=== PATIENT | female | born 1945 | race Caucasian/White ===

== ENCOUNTER 2023-11-08 09:42 | Outpatient (RCR) | payer MEDICARE, BC, SELFPAY ==
--- NOTE | 2023-11-08 17:58 | PT.OPEX ---
[facility] Outpatient Eval Start: 11/08/23 13:36 Freq: Status: Active Protocol: Document 11/08/23 13:39 MADDIE (Rec: 11/08/23 17:57 MADDIE [id number]) E-signed By Roxanna Jane DPT Physical Therapy Outpatient Evaluation Insurance Information Recert Due Date 01/07/24 Insurance Name Medicare B Medical Diagnosis R hip OA R ELVIS scheduled for 11/18 Treating Diagnosis R hip pain, impaired R hip ROM , impaired R hip/LE mobility/ strength, limited tolerance for standing/walking, limping/ antalgic gait using 4ww Subjective Subjective Patient reports chronic R hip pain, progressively getting worse, leading up to R ELVIS scheduled for 11/18. She reports severe R hip pain the last couple of weeks. She had an injection about 3 months ago so had to wait to schedule her ELVIS surgery. She is getting around with a 4ww - starting using it about 2 months ago secondary to R hip pain. Sleep is interrupted. She is using tylenol, advil some but this doesn't really help with her severe pain. Using ice as needed. Patient/ spouse reports having single level rambler home, no stairs. She has a lift chair she can use at home. Spouse has been assisting her with dressing LEs/socks/shoes secondary to R hip pain. Pain rated 8/10, worse with activity, WB, standing, walking. Date of Last Physician Visit 10/14/23 Date of Surgery (If applicable) 11/19/23 Current Work Status Retired Assessment Assessment/Impression Patient is a 78 year old female with chronic R hip pain , impaired R hip ROM, impaired R hip/LE mobility/strength, limited tolerance for standing /walking, limping/antalgic gait using 4ww. R hip pain has been progressively getting worse, leading up to R ELVIS scheduled for 11/18. Patient seen in PT today for pre-op session to provide education/ information on upcoming ELVIS surgery, safety information/HO , equipment instruction including use of 4ww/FWW, and instruction in ELVIS exercises. Handouts issued for exercises , patient to perform them leading up to surgery. Reviewed PT/OT plan during hospital stay and patient is scheduled for OP PT in [place] post op. Patient and spouse questions answered this session. They expressed understanding of the information provided. No further PT scheduled at this clinic. Patient will continue with her HEP and follow up with OP PT closer to home after surgery. Plan of Care Rehabilitation Potential Good Physical Therapy Goals 1. Patient will be educated in ELVIS pre/post-op safety, mobility, and exercises with HOs provided within one visit with patient returning to PT for post op treatment after R ELVIS surgery on 11/19/23. Note: patient will be going to post op OP PT in [place]. Coordination/Communication With Referral Source Frequency/Duration Pre-op ELVIS visit only. Patient has OP PT scheduled in [place] after ELVIS surgery. Patient Will Be Discharged From Therapy Completion of LTG(s),Skills Plateau,Independent w/HEP, Independently Progressing Evaluation Billing Untimed Code Treatment Minutes 40 Complexity Moderate Certification Information Initial Certification Date 11/08/23 Ending Certification Date 01/07/24 Provider Signature Shows Agreement With POC & Medical Necessity Physician Signature & Date Requested Please Sign/Date Here Physician Comment/Change : Physician NPI Number #
== END 2024-02-18 15:40 | disposition home or self-care (01) ==
PROVIDERS: PCP Nurse Practitioner Family; Visit Provider Orthopaedic Surgery
DX: M16.11 Unilateral primary osteoarthritis, right hip (principal); M25.551 Pain in right hip; Z74.09 Other reduced mobility; R26.89 Other abnormalities of gait and mobility; R29.898 Other symptoms and signs involving the musculoskeletal system; Z96.641 Presence of right artificial hip joint; Z51.89 Encounter for other specified aftercare
CPT/HCPCS: 97162

== ENCOUNTER 2024-03-12 06:45 | Day surgery (SDC) | payer MEDICARE, BC, SELFPAY ==
[2024-03-12] VITALS (24 sets, daily range): BP systolic 106–179; BP diastolic 63–106; PULSE 58–84; RESP 14–20; TEMP 36.2–36.6; O2SAT 93–98; BMI 46.6
--- OUTSIDE RECORDS SUMMARY | 2024-03-12 06:49 | XMS_ITS | Clinical Summary ---
Author Organization [facility] Address [address] [address] Phone Care Team Providers Care Support Service Tech Name Role Phone Elsewhere, Pcp Primary Care Provider Unavailabl e Allergies Active Allergy Reactions Criticality Noted Date Comments Meperidine Unknown 03/20/2023 Morphine And Codeine Unknown 03/20/2023 Medications Medication Sig Dispensed Refills Start Date End Date Status albuterol HFA (Proair HFA, Ventolin HFA) 108 (90 Base) MCG/ACT inhalation aerosol 02/14/2023 Active Eliquis 5 MG tablet 02/23/2023 Activ e chlorthalidone (HYGROTON) 25 MG tablet 02/23/2023 Active metoprolol succinate (Toprol-XL) 100 MG 24 hour extended-release tablet 02/23/2023 Active lisinopril (Prinivil, Zestril) 40 MG tablet 02/23/2023 Active nystatin (Mycostatin) 988546 UNIT/GM cream 10/25/2022 Active montelukast (Singulair) 10 MG tablet 02/23/2023 Active spironolactone (Aldactone) 50 MG tablet 02/23/2023 Active pravastatin (Pravachol) 40 MG tablet 02/23/2023 Active pantoprazole (Protonix) 40 MG delayed-release tablet 02/23/2023 Ac tive Incruse Ellipta 62.5 MCG/ACT Aerosol Powder Breath Activated 02/14/2023 A ctive tamsulosin (Flomax) 0.4 MG 24 hour capsule 02/23/2023 Active venlafaxine (Effexor-XR) 150 MG 24 hour extended release capsule 02/23/2023 Active venlafaxine (Effexor-XR) 37.5 MG 24 hour extended release capsule 02/23/2023 Active Social History Tobacco Use Types Packs/Day Years Used Date Smoking Tobacco: Never Smokeless Tobacco: Never Tobacco Cessation:Counseling Given: Not Answered Sex and Gender Information Value Date Recorded Sex Assigned at Not on file Gender Identity Not on file Sexual Orientation Not on file Obstetrics History Plan of Treatment Health Maintenance Due Date Last Done Comments PERTUSSIS (Standing Order) 1965 TETANUS (Standing Order) 1965 Shingrix (Zoster recombinant ) vaccine (Standing Order) (1 of 2) 1996 RSV Vaccination (60+ yrs) (Abrysvo/Arexvy) (1 - 1-dose 60+ series) 2006 DXA,FEMALES AGE 65 OR GREATER 2011 Pneumococcal Vaccine: 65+ yr s (Standing Order) (1 of - PCV) 2011 COVID-19 Vaccine (2022-2 4 season) 2024 Influenza Vaccine Seasonal (Standing Order) (#1) 2024 HPV Vaccine (Standing Order) Aged Out No longer eligible based on patient's age to complete this topic Hepatitis B Vaccine (Standin g Order) Aged Out No longer eligible b ased on patient's age to complete this topic Care Teams Support Service Tech Relationship Specialty Start Date End Date Elsewhere, Pcp PCP - General 03/20/23
--- OUTSIDE RECORDS SUMMARY | 2024-03-12 06:49 | XMS_ITS | Clinical Summary ---
Author Organization [facility] Address [place], [place] [address] Care Team Providers Care Flower Grower Name Role Phone Kiarra Espinosa Primary Care Provider [phone] Allergies Active Allergy Reactions Criticality Noted Date Comments Meperidine Hallucinations,Vomiting 08/09/2014 Morphine Hallucinations,Vomiting 08/09/2014 Medications Medication Sig Dispensed Refills Start Date End Date Status ASPIRIN 81 MG TAB, DELAYED RELEASE take 1 tablet (81 mg) by oral route once daily 0 06/10/2007 Active venlafaxine (EFFEXOR) 50 mg tablet Take 50 mg by mouth every morning. Active albuterol-ipratropiu m (DUONEB) (2.5-0.5 mg) in 3 mL NEBULIZATION solution Inhale 1 Neb via a nebulizer every 4 hours if needed for Wheezing. Active pravastatin (PRAVACHOL) 40 mg tablet Take 1 tablet by mouth at bedtime. 10 tablet 08/19/2014 Active lisinopril-hydrochlo rothiazide, 20-25 mg, (PRINZIDE, ZESTORETIC) 20-25 mg per tablet Take 1 tablet by mouth once daily. Active amLODIPine (NORVASC) 10 mg tablet Take 10 mg by mouth once daily. Active topiramate (TOPAMAX) 25 mg tablet Take 75 mg by mouth at bedtime. Active montelukast (SINGULAIR) 10 mg tablet Take 10 mg by mouth at bedtime. Active acetaminophen (TYLENOL) 325 mg tablet Take 975 mg by mouth 2 times daily if needed. Max acetaminophen dose: 4000mg in 24 hrs. Active sennosides-docusate, 8.6-50 mg, (SENOKOT S) 8.6-50 mg tablet Take 1-2 tablets by mouth 2 times daily if needed for Constipation. 0 12/21/2016 Active metoprolol succinate (TOPROL XL) 50 mg sustained-release tablet Take 1 tablet by mouth 2 times daily. Hold for pulse less than 65 beats per minute 0 12/21/2016 Active famotidine (PEPCID) 20 mg tabletIndications:In tracranial aneurysm,Antiplatele t or antithrombotic long-term use Take 1 tablet by mouth 2 times daily. 60 tablet 12/21/2016 Active clopidogrel (PLAVIX) 75 mg tabletIndications:Ne xt dose due 12/21/16 Take 1 tab (75mg) by mouth every THIRD day. Discontinue after Saturday, January 19 2017. Indications: Next dose due 12/21/16 10 tablet 12/21/2016 Active Active Problems Problem Noted Date Diagnosed Date HTN (hypertension) 12/19/2016 Right internal carotid artery aneurysm 7 Overview (12/21/2016): S/p coil embolization after rupture on 08/09/2014. S/p coil embolization of recurrent aneurysm on 12/20/16. Coils are MRI compatible up to 3 Jud. Hyponatremia 08/13/2014 Elevated troponin 08/10/2014 Shortness of breath 06/10/2007 History of subarachnoid hemorrhage Overview (12/19/2016): Ruptured right ICA terminus aneurysm Jul 2014. Resolved Problems Problem Noted Date Diagnosed Date Resolved Date SAH (subarachnoid hemorrhage ) mast 3, monet reno 2 08/09/2014 12/19/2016 Overview (08/09/2014): Due to ruptured MARY terminus aneurysm Ruptured MARY terminus aneur ysm: Treated with coil embolization 08/09/2014. Coils MRI compatible up to 3 JUD. 08/09/2014 12/19/2016 Social History Tobacco Use Types Packs/Day Years Used Date Smoking Tobacco: Former Cigarettes Q uit: 06/08/1970 Smokeless Tobacco: Never Alcohol Use Standard Drinks/Week Comments Yes 5 (1 standard drink = 0.6 oz pur e alcohol) Sex and Gender Information Value Date Recorded Sex Assigned at Not on file Gender Identity Not on file Sexual Orientation Not on file Obstetrics History Last Filed Vital Signs Vital Sign Reading Time Taken Comments Blood Pressure 134/70 12/21/2016 11:12 AM CDT Pulse 53 12/21/2016 11:12 AM CDT Temperature 36.3 ??C (97.3 ??F) 12/21/2016 9:29 AM CD T Respiratory Rate 16 12/21/2016 11:12 AM CDT Oxygen Saturation 97% 12/21/2016 11:12 AM CDT Inhaled Oxygen Concentration - - Weight 132.9 kg (293 lb) 12/20/2016 8:57 AM CDT Height 175.3 cm (5' 9) 12/20/2016 8:57 AM CDT Body Mass Index 43.27 12/20/2016 8:57 AM CDT Plan of Treatment Health Maintenance Due Date Last Done Comments Tdap 1957 Depression screening for age 12+ 1958 Hepatitis C screening for ag e 18-79 1964 Tetanus booster 1966 Zoster (shingles) series for age 50+ (1 of 2) 1996 RSV vaccine for adults or (1 - 1-dose 60+ series) 2006 DEXA/DXA scan for age 65+ 2011 Medicare Wellness for age 65+ 2011 Pneumococcal series for age 65+ (1 of 1 - PCV) 2011 BMI (ht and wt on same day) for age 18+ 11/23/2017 11/23/2016 COVID-19 vaccine series (2022- season) 2024 04/09/2023, 04/30/2022, 11/21/2021, Additional history exists Influenza for age 65+ 02/23/2024 Advance Directives * Full Code (Latest Code Status on File) Date Activated Date Inactivated Comments 12/20/2016 8:21 AM 12/21/2016 3:49 PM Question Answer Comments Code Status Discussion: Discussed * Full Code Date Activated Date Inactivated Comments 08/09/2014 2:46 AM 08/19/2014 8:35 PM Care Teams Flower Grower Relationship Specialty Start Date End Date Kiarra Espinosa [address] [place] [id number] PCP - General Nurse Practitioner - Family 12/08/20
[2024-03-12] MEDS: ACETAMINOPHEN 500 MG TABLET 1000 MG PO ×3 (07:10→20:01)
[2024-03-12] MEDS: OXYCODONE (CR) 10 MG TAB.ER.12H PO (07:10)
[2024-03-12] MEDS: LACTATED RINGERS 1000 ML 1,000 ML 100 ML IV ×2 (07:25→09:41)
[2024-03-12] MEDS: SODIUM CHLORIDE 0.9 % (FLUSH) 10 ML SYRINGE IVF (07:25)
[2024-03-12] MEDS: fentaNYL 100 MCG/2 ML inj IVP (08:19)
[2024-03-12] MEDS: MIDAZOLAM HCL 1 MG/ML inj IVP (08:19)
--- NOTE | 2024-03-12 08:32 | SUR.PREOP ---
TIME?OUT:?0819 PT/Tanisha MAE RN/Jignesh JUDD MDA?VERIFICATION?OF?SURGICAL?SITE,?PROCEDURE,?AND?CONSENT OBTAINED?PRIOR?TO?INVASIVE?PROCEDURE.
--- NOTE | 2024-03-12 09:00 | CRLHL7_ITS ---
For Patients: As a result of the Cures Act, medical imaging exams and procedure reports are released immediately into your electronic medical record. You may view this report before your referring provider. If you have questions, please contact your health care provider. Indication: Hip replacement surgery Technique: AP hip fluoroscopic images. Fluoroscopy time 59.6 seconds. Findings/Impression: Hardware from a right total hip arthroplasty is in satisfactory position. Dictated by Cody Witt MD @ 03/12/2024 11:14:38 AM (Electronically Signed)
--- NOTE | 2024-03-12 09:18 | W.ANESCHARGE ---
Anesthesia Charges Start Date/Time Anesthesia Start Date: 03/12/24 Anesthesia Start Time: 08:57 Stop Date/Time Anesthesia Stop Date: 03/12/24 Anesthesia Stop Time: 12:14 Summary Extremes of Age - Over 70 or under 1: MDA
--- NOTE | 2024-03-12 09:18 | W.PM.NB ---
Nerve Block Nerve Block Time Seen by Provider: 08:24 Type of block requested by surgeon for post-operative analgesia: ANDRZEJ/LFCN Side: right Time out performed: Yes Verification of patient name: Yes Verification of date of : Yes Site marking: site marked Name of person performing procedure: Stew Continuous monitoring Was continuous monitoring of O2 sat, B/P, school bus monitor, recorded every 15 minutes?: Yes Procedure Checklist: sterile prep, needles and gloves Ultrasound guided. Images saved: Yes Medications given in 5ml increments after negative aspiration: Ropivicaine %: 0.5 mL: 30 Needle gauge: 20 Decadron (mg): 10 Precedex (mcg): 25 Patient tolerated procedure well: Yes Additional comments: Needle noted below psoas tendon needle noted adjacent to LFCN Block Charges Block Charge (with Pro Fee): Other Periph Nerve Block Use of Ultrasound Machine for Block: Yes- US Guidance/pain block
[2024-03-12] MEDS: CEFAZOLIN 2 GM INJ IVP (09:32)
[2024-03-12] MEDS: TRANEXAMIC ACID 100 MG/ML INJ 1000 MG IV (09:32)
--- NOTE | 2024-03-12 11:02 | CRLHL7_ITS ---
For Patients: As a result of the Century Cures Act, medical imaging exams and procedure reports are released immediately into your electronic medical record. You may view this report before your referring provider. If you have questions, please contact your health care provider. INDICATION: Postop. TECHNIQUE: Portable three-view study pelvis and right hip. FINDINGS: Bilateral total-hip arthroplasty with anatomic alignment. Intact hardware. Dictated by Marilyn Forrest MD @ 03/16/2024 9:16:45 AM (Electronically Signed)
--- NOTE | 2024-03-12 11:05 | PM.ORPRC ---
Procedure Note Date of procedure: 03/12/24 Procedure: PREOPERATIVE DIAGNOSIS: Right hip osteoarthritis POSTOPERATIVE DIAGNOSIS: Right hip osteoarthritis NAME OF OPERATION: Right total hip arthroplasty SURGEON: Sarbjit Carmen MD FRONT OFFICE SPECIALIST: Shelli Talamantes PA-C, Sasha Jeter PA-C IMPLANTS: 1. [employer] # 52 sector ingrowth cup 2. 36 x 52 +4 neutral polyethylene 3. Actis # 6 standard collared ingrowth stem 4. 36 + 1.5 cobalt chrome femoral head ANESTHESIA: Spinal ESTIMATED BLOOD LOSS: 350 cc COMPLICATIONS: None SPECIMENS: None DRAINS: None PREOPERATIVE ANTIBIOTICS: Ancef 3 grams INDICATIONS: The patient is a 78-year-old with a longstanding history of severe, unrelenting right hip pain secondary to end-stage right hip osteoarthritis. Despite appropriate nonoperative management, including activity modification, use of an assist device, anti-inflammatories, zysc-[id number] pain medication, physical therapy and injections, they continue to have pain and disability. Operative intervention was offered. The risks, benefits and expected outcomes were discussed in detail. These included but were not limited to: Infection, bleeding, injury to blood vessel or nerve, venous thromboembolism. All questions were answered to their satisfaction. Use of an assistant head cashier was necessary throughout the case for patient positioning and safety, soft tissue retraction and closure. A modifier 22 should be added to this case. The patient's weight of 134 kg with a BMI of 47 made the exposure nearly impossible to do the case. This more than doubled the time typically required to complete it. PROCEDURE: The patient was placed supine on the [place] table. General anesthesia was administered. The assistant head cashier made sure the patient was properly positioned. The right hip was prepped and draped in the usual sterile fashion. The image intensifier was brought in for a perfect AP pelvis and a perfect double tear drop AP view of each hip which were used for intraoperative templating with our fluoroscopic guide. An oblique incision was made 3 cm distal and 3 cm lateral to the anterior superior iliac spine. The assistant head cashier retracted the soft tissues to protect them. Subcutaneous dissection was taken with electrocautery to the superficial fascia. The fascia was divided in line with the incision. Blunt dissection was carried medially to the tensor fascia hayder and sartorius interval. Deep dissection was carried with electrocautery. The circumflex vessels were cauterized and divided. The capsule was exposed and then divided in a T-fashion, tagged with #1 Ethibond sutures. Retractors were placed in the joint, held by the assistant head cashier. The corkscrew was placed in the femoral head. The neck cut was made in the subcapital region. We made a second neck cut more distal. The napkin ring of bone was removed. The femoral head was removed intact. Acetabular retractors were placed, held by the assistant head cashier. The labrum was sharply debrided. The capsule was released. The 43 mm reamer was used to the true medial wall. We then enlarged in 2 mm increments using the image intensifier for our reamer placement. We impacted the cup which had excellent purchase. We placed the polyethylene. Attention was then turned to the proximal femur. The limb was placed in 140 degrees of external rotation, maximum extension and adduction. A significant amount of time was spent releasing the capsule to allow us to deliver the femur into the wound and complete the femoral side safely. Retractors were held by the assistant head cashier throughout the femoral preparation. The box worker and canal finder were used. Broaches were used to a stable size. The calcar reamer was used. Trial components were placed. The hip was reduced and was found to be stable with appropriate soft tissue tension. Length and offset had been nicely restored using the image intensifier and our fluoroscopic guide. Trial components were removed. The stem was impacted. We placed the femoral head. Again, the hip was reduced and was found to be stable with appropriate soft tissue tension. Length and offset had been nicely restored. The assistant head cashier did a three minute dilute Betadine solution soak. The assistant head cashier irrigated the wound with 3 liters of normal saline via pulse lavage. The assistant head cashier repaired the anterior capsule with a #1 Vicryl and our previously placed Ethibond sutures. The assistant head cashier closed the fascia over the tensor fascia hayder with a #1 PDO Stratafix, subcutaneous tissues with 2-0 Vicryl, skin with a running 3-0 Stratafix and glue. A dry dressing was applied by the assistant head cashier. Sponge and needle counts were correct x 2. The patient tolerated the procedure well; there were no apparent complications. They were awakened and extubated in the operating room, sent to the Post-Anesthesia Care Unit in satisfactory condition. PLAN: 1. The patient will be mobilized with physical therapy, weight-bearing as tolerates 2. The patient's usual dose of Eliquis can be restarted 3. The patient will be discharged once medically appropriate
--- NOTE | 2024-03-12 12:16 | P.ANES_ITS ---
Anesthesia Charges Start Date/Time Anesthesia Start Date: 03/12/24 Anesthesia Start Time: 08:57 Stop Date/Time Anesthesia Stop Date: 03/12/24 Anesthesia Stop Time: 12:14 Summary Extremes of Age - Over 70 or under 1: DIRECTOR OF CURRICULUM AND INSTRUCTION
[2024-03-12] MEDS: LACTATED RINGERS 1000 ML 1,000 ML 75 ML IV (13:03)
[2024-03-12] MEDS: OXYCODONE 5 MG TABLET PO (15:01)
[2024-03-12] MEDS: CEFAZOLIN 3 GM in 0.9 % SODIUM CHLORIDE Mini-bag 100 ML IVPB ×2 (15:09→23:40)
--- NOTE | 2024-03-12 16:31 | PC.NURSE ---
Shift [id number]: Pt arrived to floor around 1300, alert and oriented. Pt is hypertensive, though otherwise vitally stable. Plexi pulses are in place bilaterally. Dressing is clean, dry and intact. Pain was rated at a 4/10, see mar for interventions. Daughters at the bedside and appears supportive.
--- NOTE | 2024-03-12 17:37 | PM.IMCN1 ---
Date of Consult Patient: Other Consult date: 03/12/24 Requesting Physician: Orthopedics Primary Care Provider: Kiarra Espinosa, LEATHA Consult Narrative Reason for consult: post-op: for CAD, HTN-heart disease with HF, A Fib, WILLI, HLD, asthma Narrative: Lisa Crane is a 78 year old woman with severe symptomatic right coxarthrosis undergoes elective right total hip arthroplasty today, 03/12/2024, with Dr. Carmen, orthopedic surgeon, [facility] [place], [place], [place]. No apparent complications. Estimated blood loss 350 mL. Pain adequately controlled at this time. With standby assist of 1, gait belt, and her walker she has already been able to transfer from supine to sitting position, sitting to standing, walk a few steps to bedside commode, and then walk a few steps to bedside recliner chair. Denies chest, neck, back, shoulder, or abdominal pressure, tightness, heaviness, or pain with exertion. Denies syncope or near-syncope. Denies nausea or vomiting. Denies dyspnea at rest, paroxysmal nocturnal dyspnea, orthopnea. Has baseline level of breathing. Denies wheezing. Denies palpitations or chest fluttering. Review of Systems Status of ROS: Reports: 10 or more systems reviewed and unremarkable except as noted in History and below and 6 or more systems reviewed and unremarkable except as noted in History and below Narrative: She indicates she feels better now than she has for months. The the persistent right hip pain exacerbated with movement and weight-bearing is already vastly improved now compared to prior to surgery. Does tell me about occasional intermittent transient, fleeting, lancinating pain originating in the right hip which resolves very rapidly - this is new since surgery. Has plan in place for support and help in her home upon discharge from the hospital. Denies recent trauma, injury, travel. No recent illness, fevers, rigors, diaphoresis. Denies dysuria, urgency, frequency, hematuria. Denies diarrhea. Denies any wounds or infections on her skin of any sort. CBC on 01/23/2024 with hemoglobin of 13.4, hematocrit 42, white blood cell count 8.6, platelet count 280. Hemoglobin on 01/03/2024 was 12.6. Comprehensive metabolic panel on 01/23/2024 reviewed the following: Potassium 4.7, sodium 140, chloride 101, bicarbonate 26, anion gap 13, BUN 18, creatinine 0.96, EGFR 61, calcium 9.3, glucose 96, total protein 7.4, albumin 4.2, AST 19, ALT 15, alkaline phosphatase 95, total bilirubin 0.6. NT proBNP was 395 on 01/23/2024. Arterial blood gas while on room air on 01/29/2024: PH 7.4, pCO2 41, PO2 79, bicarb 25, base excess 0, oxygen saturation 95%. Electrocardiogram dated 11/14/2023 reviewed and demonstrated atrial and biventricular pacemaker with underlying sinus rhythm. [facility] Medical History History of tobacco use disorder ?Z87.891 - Personal history of nicotine dependence (ICD-10) History of alcohol use disorder ?Z87.898 - Personal history of other specified conditions (ICD-10) History of subarachnoid hemorrhage ?Z86.79 - Personal history of other diseases of the circulatory system (ICD-10) Coronary artery disease ?I25.10 - Atherosclerotic heart disease of [place] coronary artery without angina pectoris (ICD-10) Morbid obesity with BMI of 45.0-49.9, adult ?E66.01 - Morbid (severe) obesity due to excess calories (ICD-10) ?Z68.42 - Body mass index [BMI] 45.0-49.9, adult (ICD-10) WILLI (obstructive sleep apnea) ?G47.33 - Obstructive sleep apnea (adult) (pediatric) (ICD-10) Hypertensive heart disease with CHF ?I11.0 - Hypertensive heart disease with heart failure (ICD-10) Pacemaker ?Z95.0 - Presence of cardiac pacemaker (ICD-10) Depression ?F32.A - Depression, unspecified (ICD-10) Anxiety ?F41.9 - Anxiety disorder, unspecified (ICD-10) GERD with apnea ?K21.9 - Gastro-esophageal reflux disease without esophagitis (ICD-10) ?R06.81 - Apnea, not elsewhere classified (ICD-10) Asthma ?J45.909 - Unspecified asthma, uncomplicated (ICD-10) Hypertension ?I10 - Essential (primary) hypertension (ICD-10) Low back pain ?M54.50 - Low back pain, unspecified (ICD-10) Cervical vertebral fusion ?M43.22 - Fusion of spine, cervical region (ICD-10) Aneurysm ?I72.9 - Aneurysm of unspecified site (ICD-10) Stroke ?I63.9 - Cerebral infarction, unspecified (ICD-10) COPD (chronic obstructive pulmonary disease) ?J44.9 - Chronic obstructive pulmonary disease, unspecified (ICD-10) CHF (congestive heart failure) ?I50.9 - Heart failure, unspecified (ICD-10) Primary osteoarthritis of right hip ?M16.11 - Unilateral primary osteoarthritis, right hip (ICD-10) Surgical History (Updated 03/12/24 @ 18:11 by lEiu Storm MD) S/P total right hip arthroplasty (03/12/24) ?Z96.641 - Presence of right artificial hip joint (ICD-10) History of pancreatic surgery ?Z98.890 - Other specified postprocedural states (ICD-10) History of cholecystectomy ?Z90.49 - Acquired absence of other specified parts of digestive tract (ICD-10) S/P rotator cuff repair ?Z98.890 - Other specified postprocedural states (ICD-10) Bariatric surgery status ?Z98.84 - Bariatric surgery status (ICD-10) History of bladder surgery ?Z98.890 - Other specified postprocedural states (ICD-10) S/P total knee arthroplasty ?Z96.659 - Presence of unspecified artificial knee joint (ICD-10) History of carpal tunnel release of both wrists ?Z98.890 - Other specified postprocedural states (ICD-10) History of ankle surgery ?Z98.890 - Other specified postprocedural states (ICD-10) History of total left hip replacement ?Z96.642 - Presence of left artificial hip joint (ICD-10) History of hysterectomy ?Z90.710 - Acquired absence of both cervix and uterus (ICD-10) Social History Smoking Status: Never smoker How often do you have a drink containing alcohol: 2-4 times a month AUDIT-C Alcohol total score: 2 Non-prescribed substance use: denies use Caffeine: Yes Meds Home Medications and Allergies Home Medications ?Medication ?Instructions ?Recorded ?Confirmed ?Type albuterol sulfate 90 mcg/actuation 2 puff inhalation Q4H PRN 10/14/23 03/12/24 History aerosol inhaler apixaban 5 mg tablet (Eliquis) 5 mg PO BID 10/14/23 03/12/24 History chlorthalidone 25 mg tablet 12.5 mg PO QAM 10/14/23 03/12/24 History epinephrine 0.3 mg/0.3 mL 0.3 mg IM DAILY PRN 10/14/23 03/12/24 History injection, auto-injector lisinopril 40 mg tablet 40 mg PO DAILY 10/14/23 03/12/24 History metoprolol succinate 100 mg 100 mg PO DAILY 10/14/23 03/12/24 History tablet,extended release 24 hr montelukast 10 mg tablet 10 mg PO HS 10/14/23 03/12/24 History pantoprazole 40 mg tablet,delayed 40 mg PO DAILY 10/14/23 03/12/24 History release pravastatin 40 mg tablet 40 mg PO DAILY 10/14/23 03/12/24 History spironolactone 50 mg tablet 50 mg PO DAILY 10/14/23 03/12/24 History tamsulosin 0.4 mg capsule 0.4 mg PO DAILY 10/14/23 03/12/24 History venlafaxine 150 mg 150 mg PO DAILY 10/14/23 03/12/24 History capsule,extended release 24 hr venlafaxine 37.5 mg 37.5 mg PO DAILY 10/14/23 03/12/24 History capsule,extended release 24 hr acetaminophen 500 mg capsule 1,000 mg PO Q6H PRN 03/11/24 03/12/24 History albuterol sulfate 2.5 mg/0.5 mL 2.5 mg inhalation Q4H PRN 03/12/24 03/12/24 History solution for nebulization ascorbic acid (vitamin C) 500 mg 500 mg PO BID 03/12/24 03/12/24 History tablet cholecalciferol (vitamin D3) 25 25 mcg PO DAILY 03/12/24 03/12/24 History mcg (1,000 unit) capsule fluticasone fur. 200 mcg-umeclid 1 inh inhalation DAILY 03/12/24 03/12/24 History 62.5 mcg-vilant 25 mcg inhalat.powder (Trelegy Ellipta) magnesium 250 mg tablet 250 mg PO DAILY 03/12/24 03/12/24 History melatonin-pyridoxine HCl (vitamin 1 tab PO HS 03/12/24 03/12/24 History B6) 1 mg-10 mg tablet tirzepatide 2.5 mg/0.5 mL 2.5 mg subcut QWEEK 03/12/24 03/12/24 History subcutaneous pen injector (Mounjaro) Allergies Allergy/AdvReac Type Severity Reaction Status Date / Time bee venom protein (honey bee) Allergy Severe Verified 03/12/24 07:28 meperidine [From Demerol] Allergy Severe Hives Verified 03/12/24 07:28 morphine Allergy Severe Verified 03/12/24 07:28 Exam Narrative: Exam Narrative: I examined the patient in her hospital room. She appears comfortable and in no acute distress. Vision and hearing are adequate. Alert and oriented to self, place, time, situation. Friendly, articulate, cooperative. Lungs are clear to auscultation without wheezing, rhonchi, or rales. Chest wall excursions are full. No CVA tenderness to thumping. Heart tones with regular rhythm, normal S1-S2, without murmur, gallop, or rub. PMI is not laterally displaced. Abdomen is obese with active bowel sounds, soft, nontender. No rebound or guarding. Trace edema pretibially bilaterally, which patient states is not uncommon for her. I observe her as she transfers from supine to sitting, sitting to standing, and is able to take a few steps with gait belt, walker, and standby assist of 1. No focal motor neurologic deficits. Const: Vital Signs, click to edit/add: Vital Signs - 24 hr 03/12/24 07:30 03/12/24 08:17 03/12/24 08:30 Temperature 97.9 F Pulse Rate 84 60 61 Pulse Rate [Pulse Oximeter] Respiratory Rate 16 16 16 Blood Pressure 150/90 H 130/70 123/66 Blood Pressure [Le ft Arm] Pulse Oximetry 95 98 98 Oxygen Delivery Me thod Room Air Nasal Cannula Nasal Cannula Oxygen Flow Rate 3 3 03/12/24 12:10 03/12/24 12:15 03/12/24 12:20 Temperature 97.4 F L Pulse Rate 62 60 60 Pulse Rate [Pulse Oximeter] Respiratory Rate 15 15 15 Blood Pressure 137/85 148/88 H 160/92 H Blood Pressure [Le ft Arm] Pulse Oximetry 94 97 95 Oxygen Delivery Me thod Room Air Room Air Room Air Oxygen Flow Rate 03/12/24 12:25 03/12/24 12:30 03/12/24 12:35 Temperature 97.1 F L Pulse Rate 60 60 60 Pulse Rate [Pulse Oximeter] Respiratory Rate 14 14 14 Blood Pressure 178/99 H 157/106 H 159/94 H Blood Pressure [Le ft Arm] Pulse Oximetry 96 94 97 Oxygen Delivery Me thod Room Air Room Air Room Air Oxygen Flow Rate 03/12/24 12:40 03/12/24 12:45 03/12/24 13:00 Temperature 97.4 F L 97.4 F L Pulse Rate 58 L 60 Pulse Rate [Pulse Oximeter] 61 Respiratory Rate 14 14 16 Blood Pressure 179/98 H 152/89 H Blood Pressure [Le ft Arm] 157/96 H Pulse Oximetry 96 97 95 Oxygen Delivery Me thod Room Air Room Air Room Air Oxygen Flow Rate 03/12/24 13:00 03/12/24 13:15 03/12/24 13:30 Temperature 97.4 F L 97.2 F L 97.3 F L Pulse Rate Pulse Rate [Pulse Oximeter] 61 60 60 Respiratory Rate 16 18 18 Blood Pressure Blood Pressure [Le ft Arm] 157/96 H 159/93 H 164/88 H Pulse Oximetry 95 94 96 Oxygen Delivery Me thod Room Air Room Air Room Air Oxygen Flow Rate 3 03/12/24 13:30 03/12/24 13:35 03/12/24 13:45 Temperature 97.3 F L 97.3 F L 97.3 F L Pulse Rate 60 60 60 Pulse Rate [Pulse Oximeter] Respiratory Rate 18 18 18 Blood Pressure 164/88 H 152/89 H 156/89 H Blood Pressure [Le ft Arm] Pulse Oximetry 96 96 96 Oxygen Delivery Me thod Room Air Room Air Room Air Oxygen Flow Rate 3 03/12/24 14:00 03/12/24 14:00 03/12/24 15:00 Temperature 97.3 F L 97.3 F L 97.3 F L Pulse Rate 60 60 60 Pulse Rate [Pulse Oximeter] Respiratory Rate 18 18 18 Blood Pressure 162/85 H 168/90 H 154/89 H Blood Pressure [Le ft Arm] Pulse Oximetry 94 97 97 Oxygen Delivery Me thod Room Air Room Air Room Air Oxygen Flow Rate 0 0 0 03/12/24 16:30 Temperature 97.6 F Pulse Rate Pulse Rate [Pulse Oximeter] 84 Respiratory Rate 18 Blood Pressure Blood Pressure [Le ft Arm] 106/63 Pulse Oximetry 95 Oxygen Delivery Me thod Room Air Oxygen Flow Rate Assessment and Plan Assessment and plan (1) Osteoarthritis of right hip: Problem comment: - due to advanced coxarthrosis - status post right total hip arthroplasty 03/12/2024 Status: Acute (2) S/P total right hip arthroplasty: Problem comment: - Right total hip arthroplasty (03/12/24, Dr. Carmen) - venous thromboembolism prophylaxis while in hospital per Orthopedic surgery and continued thereafter with apixaban 5 mg twice daily which she takes due to atrial fibrillation - perioperative antibiotic prophylaxis - postoperative physical therapy and occupational therapy - hospitalists available to support patient and Orthopedic surgery if there are additional questions or concerns Status: Acute (3) Coronary artery disease: Problem comment: - Abnormal ECG 10/2023 - with no history of prior myocardial infarction - Abnormal PET cardiac stress test 11/2023 markedly positive - Coronary angiogram 02/13/24: coronary artery dominance is right. Normal left main coronary. Normal LAD coronary. Proximal circumflex coronary artery 20% obstructed by discrete lesion. Right posterolateral coronary artery segment 20% obstructed by discrete lesion. CONCLUSION: mild coronary atherosclerosis without need for intervention and safe to proceed with right total hip arthroplasty on 03/12/2024 - while in hospital status post right total hip arthroplasty continue with her usual medications Status: Acute (4) Asthma: Problem comment: - well controlled with Trelegy inhaler and hardly uses any as needed rescue albuterol bronchodilator - continue the same while in hospital Status: Acute (5) GERD with apnea: Problem comment: - proton pump inhibitor Status: Acute (6) WILLI (obstructive sleep apnea): Problem comment: - on CPAP - asked daughter to bring in her CPAP machine while patient is in hospital Status: Acute (7) Pacemaker: Problem comment: - outside records suggest she had history of 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 with symptomatic bradycardia for which she underwent [employer] D in 2019 Status: Acute (8) Hypertensive heart disease with CHF: Problem comment: - [place] [employer] class 1-2 - historically had a stress echo in the past with ejection fraction of 37% - more recently in 11/2023 left ventricular ejection fraction on PET stress test was 54% at rest and 65% at peak stress - continue with her medication support while in hospital Status: Acute (9) Depression: Problem comment: - continue use of venlafaxine while in hospital Status: Acute (10) Anxiety: Problem comment: - continue use of venlafaxine while in hospital Status: Acute (11) Hypertension: Problem comment: - continue with multidrug regimen while in hospital Status: Acute (12) High cholesterol: Problem comment: - continue with pravastatin while in hospital Status: Acute (13) Atrial fibrillation: Problem comment: - chronically anticoagulated with apixaban 5 mg twice daily Status: Acute Plan 1. Reviewed impression with patient and her daughter 2. Reviewed plans and recommendations with patient and her daughter 3. Answered patient's and daughter's questions to their satisfaction 4. Completed hospitalist portion of discharge summary Total Time Spent Total Time Spent: 75 minutes
[2024-03-12] MEDS: SENNOSIDES 1 TAB TABLET 2 TAB PO (21:00)
[2024-03-12] MEDS: MELATONIN 3 MG TABLET 6 MG PO (21:00)
[2024-03-12] MEDS: MONTELUKAST 10 MG TABLET PO (21:00)
[2024-03-12] MEDS: APIXABAN 5 MG TABLET PO (21:00)
[2024-03-12] MEDS: CARBOXYMETHYLCELLULOSE (REFRESH PLUS) TEARS 1 DROP EYE-BOTH (21:01)
[2024-03-12] MEDS: NYSTATIN POWDER 1 APPLIC TOPICAL (21:46)
--- NOTE | 2024-03-12 23:31 | PC.NURSE ---
Patient alert and oriented x4. . Found to have a rash under bilateral breasts. MD was notified. New orders ( Nystatin powder)obtained. Patient also complaining of pain and weeping in left eye. Sclera of the eye did not appear red at assessment however, eye was noted to be teary. RN notifed MD of patient' symptoms. MD Ordered artficial tears. A dose was given that patient reported not to effective at the time this note was written. Patient stated that she would talk about her eye issue with the MD in the morning. No other issues noted this shift. Patient tolerating diet well. Ambulates to the bathroom with Ax1 walker and gait belt. Reports of pain 4/10 that was managed by scheduled tylenol.
[2024-03-13] MEDS: OXYCODONE 5 MG TABLET PO ×4 (00:05→10:52)
[2024-03-13 00:50] VITALS: RESP 16; O2SAT 93
[2024-03-13] MEDS: ACETAMINOPHEN 500 MG TABLET 1000 MG PO ×2 (02:34→08:24)
[2024-03-13 02:44] VITALS: BP 135/61; PULSE 65; RESP 18; TEMP 36.7; O2SAT 94
[2024-03-13] MEDS: OMEPRAZOLE 20 MG CAPSULE DR 40 MG PO (06:09)
[2024-03-13 06:50] LABS: Basophils Percent Auto 0.1 % (0.0-3.0); Hematocrit 35.9 % (33.0-51.0); Hemoglobin* 11.3 gm/dL (12.0-16.0); Immature Granulocytes Pct Auto 0.2 %; Lymphocytes Percent Auto 11.8 % (20-44); Mean Corpuscular HGB Conc 32 gm/dL (32-36); Mean Corpuscular Hemoglobin 29 pg (26-34); Mean Corpuscular Volume 92 fL (80-100); Monocytes Percent Auto 10.3 % (0.0-11.0); Neutrophils Percent Auto 77.6 % (42.0-72.0); Platelet Count* 239 K/uL (140-440); RDW Coefficient of Variation % 13.7 % (11.5-15.5); Red Blood Count 3.92 m/uL (4.00-5.20); White Blood Count* 13.69 K/uL (4.50-11.00)
--- NOTE | 2024-03-13 06:50 | PC.NURSE ---
End of shift [id number]: A&O pleasant and cooperative. VSS. PRN oxycodone for pain control. up w/ A1 walker and gait belt. Dressing to hip c/d/i. positive CMS. intermittent ice to hip. tolerating diet. using call light appropriately.
[2024-03-13 06:54] LABS: Slide Review Reflex No
[2024-03-13 07:11] LABS: Potassium* 4.3 mmol/L (3.6-5.1); Sodium* 135 mmol/L (135-149)
[2024-03-13 07:14] LABS: Estimated Glomerular Filt Rate 58 ml/min
[2024-03-13 07:15] LABS: Blood Urea Nitrogen* 28 mg/dL (7-30)
--- NOTE | 2024-03-13 07:26 | PM.ORPN ---
Subjective Subjective Time Seen by Provider: 06:30 Date Seen: 03/13/24 Principal diagnosis: Day 1 s/p right ELVIS Interval history: Lisa is resting comfortably in her recliner. Reports she did not sleep much last night. This AM, she c/o of right buttocks and right low back pain, likely related to positioning on the OR table. Denies postop chest pain, SOB, fever, chills. Admits to numbness/tingling distally, but explains she has neuropathy. Denies postop bowel movement, but admits to flatulence. Patient has right forearm erythematous streaking near her IV site, which appears to be IV phlebitis. She also c/o left eye irritation. She feels there is something in her eye. Lisa appears to keep rubbing her left eye. Ortho Exam Narrative Exam Narrative: Incision/Dressing: Dressing appears clean and dry. No drainage present. Mepilex intact. Right hip appears moderately swollen but supple with no obvious erythema, fluctuance or excessive warmth. Large area ecchymosis right hip. Warmth around the wound is appropriate. Ice is being utilized as needed. CMS: Intact distally with 2+ Dorsalis pedis and Posterior Tibial pulses. 5/5 motor strength dorsal and plantar flexion. Confirmed sensation distally. Calf: Bilateral calves are supple, with no swelling, pain, tenderness, erythema, discoloration or coolness to the touch. Constitutional: Patient is alert and oriented x3. Patient is in no acute distress and converses without labored breathing. Patient is able to make decisions and demonstrates good insight. Patient is pleasant and cooperative. Affect is full range and appropriate for the circumstances *Right forearm erythematous streaking near IV site. Left eye appears red, irritated and swollen from repetitive rubbing. Const Vital Signs, click to edit/add: Vital Signs - 24 hr 03/12/24 07:30 03/12/24 08:17 03/12/24 08:30 Temperature 97.9 F Pulse Rate 84 60 61 Pulse Rate [Pulse Oximeter] Respiratory Rate 16 16 16 Blood Pressure 150/90 H 130/70 123/66 Blood Pressure [Left Arm] Pulse Oximetry 95 98 98 Oxygen Delivery Method Room Air Nasal Cannula Nasal Cannula Oxygen Flow Rate 3 3 03/12/24 12:10 03/12/24 12:15 03/12/24 12:20 Temperature 97.4 F L Pulse Rate 62 60 60 Pulse Rate [Pulse Oximeter] Respiratory Rate 15 15 15 Blood Pressure 137/85 148/88 H 160/92 H Blood Pressure [Left Arm] Pulse Oximetry 94 97 95 Oxygen Delivery Method Room Air Room Air Room Air Oxygen Flow Rate 03/12/24 12:25 03/12/24 12:30 03/12/24 12:35 Temperature 97.1 F L Pulse Rate 60 60 60 Pulse Rate [Pulse Oximeter] Respiratory Rate 14 14 14 Blood Pressure 178/99 H 157/106 H 159/94 H Blood Pressure [Left Arm] Pulse Oximetry 96 94 97 Oxygen Delivery Method Room Air Room Air Room Air Oxygen Flow Rate 03/12/24 12:40 03/12/24 12:45 03/12/24 13:00 Temperature 97.4 F L 97.4 F L Pulse Rate 58 L 60 Pulse Rate [Pulse Oximeter] 61 Respiratory Rate 14 14 16 Blood Pressure 179/98 H 152/89 H Blood Pressure [Left Arm] 157/96 H Pulse Oximetry 96 97 95 Oxygen Delivery Method Room Air Room Air Room Air Oxygen Flow Rate 03/12/24 13:00 03/12/24 13:15 03/12/24 13:30 Temperature 97.4 F L 97.2 F L 97.3 F L Pulse Rate Pulse Rate [Pulse Oximeter] 61 60 60 Respiratory Rate 16 18 18 Blood Pressure Blood Pressure [Left Arm] 157/96 H 159/93 H 164/88 H Pulse Oximetry 95 94 96 Oxygen Delivery Method Room Air Room Air Room Air Oxygen Flow Rate 3 03/12/24 13:30 03/12/24 13:35 03/12/24 13:45 Temperature 97.3 F L 97.3 F L 97.3 F L Pulse Rate 60 60 60 Pulse Rate [Pulse Oximeter] Respiratory Rate 18 18 18 Blood Pressure 164/88 H 152/89 H 156/89 H Blood Pressure [Left Arm] Pulse Oximetry 96 96 96 Oxygen Delivery Method Room Air Room Air Room Air Oxygen Flow Rate 3 03/12/24 14:00 03/12/24 14:00 03/12/24 15:00 Temperature 97.3 F L 97.3 F L 97.3 F L Pulse Rate 60 60 60 Pulse Rate [Pulse Oximeter] Respiratory Rate 18 18 18 Blood Pressure 162/85 H 168/90 H 154/89 H Blood Pressure [Left Arm] Pulse Oximetry 94 97 97 Oxygen Delivery Method Room Air Room Air Room Air Oxygen Flow Rate 0 0 0 03/12/24 15:00 03/12/24 16:29 03/12/24 16:30 Temperature 97.6 F 97.6 F Pulse Rate 60 Pulse Rate [Pulse Oximeter] 84 Respiratory Rate 18 18 Blood Pressure 154/89 H Blood Pressure [Left Arm] 106/63 Pulse Oximetry 95 95 Oxygen Delivery Method Room Air Room Air Room Air Oxygen Flow Rate 0 03/12/24 17:29 03/12/24 18:30 03/12/24 19:30 Temperature 97.6 F 97.4 F L 97.6 F Pulse Rate 69 68 65 Pulse Rate [Pulse Oximeter] Respiratory Rate 20 20 18 Blood Pressure 155/63 H 151/81 H 168/85 H Blood Pressure [Left Arm] Pulse Oximetry 93 94 93 Oxygen Delivery Method Room Air Room Air Room Air Oxygen Flow Rate 0 0 03/12/24 19:30 03/12/24 23:32 03/13/24 00:50 Temperature 97.6 F 97.3 F L Pulse Rate Pulse Rate [Pulse Oximeter] 63 Respiratory Rate 18 16 16 Blood Pressure Blood Pressure [Left Arm] 169/84 H Pulse Oximetry 93 93 Oxygen Delivery Method Room Air Room Air Oxygen Flow Rate 0 0 03/13/24 02:44 Temperature 98.0 F Pulse Rate Pulse Rate [Pulse Oximeter] 65 Respiratory Rate 18 Blood Pressure Blood Pressure [Left Arm] 135/61 Pulse Oximetry 94 Oxygen Delivery Method Room Air Oxygen Flow Rate Assessment and Plan Assessment and plan (1) S/P total right hip arthroplasty: Problem details: - Right total hip arthroplasty (03/12/24, Dr. Carmen) Status: Acute Plan - Dr. Carmen and Dr. Castro were both notified of right forearm IV phlebitis. Dr. Castro will further evaluate this AM. - Recommend left eye flush with saline. - Complete 23 hour perioperative antibiotics. - PT/OT consults for education and assistance. - Weight bear as tolerated with a walker for assistance. - Prescribed analgesics as needed. Patient is content with current narcotic medications. Minimize narcotic pain medication use; wean off and discontinue as soon as possible. - DVT prophylaxis: resume Eliquis. Also, frequent ambulation and ankle pumps when sedentary. - Social consult for discharge planning. - Anticipate patient will be discharged to home this afternoon if the patient remains medically stable, pain is controlled and is safe with ambulation. - Return to clinic in 1 week for a wound check. Mepilex dressing will be removed at this appointment and a new Mepilex will be applied at this visit per Dr. Carmen's orders. Patient is a high risk of wound related complications due to large pannus and intertrigo. - Return to clinic in [address] Carmen - Phone Orthopedics with any questions or concerns. [phone]
[2024-03-13 07:36] VITALS: RESP 18; O2SAT 94
--- NOTE | 2024-03-13 07:50 | P.DS_ITS ---
DS: Providers Provider Date Seen: 03/13/24 Primary care physician: Kiarra Espinosa CNP Attending Physician on discharge: Sarbjit Carmen MD Date of Discharge: 03/13/24 DS: Diagnosis Discharge Diagnosis (1) S/P total right hip arthroplasty: Status: Acute Problem details: - Right total hip arthroplasty (03/12/24, Dr. Carmen). No complications. (2) IV infiltration: Status: Acute Problem details: Right forearm with a 4 x 8 cm area of erythema and induration just proximal to IV site. Likely due to IV infiltration. IV removed last night. Hot pack and observe (3) Dry eyes: Status: Acute Problem details: Has left eye irritation following surgery. Inspection of the eye shows no obvious trauma. No visual deficit. No conjunctival injection. Suspect dry eye. Treat with moisturizer. See eye doctor if not better next week. (4) Candidal intertrigo: Status: Acute Problem details: Discussed good hygiene for skin folds. Concern for yeast infection around the right hip incision. Nystatin powder. (5) WILLI (obstructive sleep apnea): Status: Acute Problem details: - on CPAP - asked daughter to bring in her CPAP machine while patient is in hospital (6) Hypertensive heart disease with CHF: Status: Acute Problem details: Asymptomatic for heart disease in the hospital [place] heart [employer] class 1-2 - historically had a stress echo in the past with ejection fraction of 37% - more recently in 11/2023 left ventricular ejection fraction on PET stress test was 54% at rest and 65% at peak stress - continue with her medication support while in hospital (7) Atrial fibrillation: Status: Acute Problem details: - chronically anticoagulated with apixaban 5 mg twice daily DS: Summary Hospital Course Hospital Course: 78-year-old female admitted to the hospital for right hip arthroplasty. Procedu re was performed by Dr. Carmen on 03/12/2024. No complications. Postoperatively patient has done well. She reports her pain is better than it was preoperatively. During the night after surgery she did have irritation is swelling of her right forearm just above her IV. It appears her IV infiltrated. She also reports some irritation of her left eye. No visual disturbance. Eye exam without magnification looks normal. Will treat with moisturizer and follow-up with her eye doctor if not getting better over the weekend. Prior to surgery she was also noted to have a intertrigo with erythema in most of her skin folds. This includes the right groin where she had her surgical incision. Discussed good hygiene of her skin and treatment with nystatin for presumed yeast infection causing the intertrigo. Status at Discharge Functional status at discharge: uses cane/walker Overall status at discharge: patient is progressing back to baseline Time Spent with Patient Time attestation: Total time spent providing and/or coordinating discharge services: 25 minutes Time spent: Less than 30 minutes Exam Narrative: Exam Narrative: She is alert and appears in no distress. Eyes appear normal. She reports irritation primarily in the left eye. Extraocular movements are full there is no conjunctival injection lid margins appear normal without magnification I do not see any corneal abrasion. Patient reports visual acuity is normal. She does wear glasses. Right upper extremity with a 8 x 4 cm area of induration erythema just above the site where her IV was removed last night. This is likely an infiltration of the IV. Likely to resolve over the next several days. Hot pack p.r.n.. Skin folds under her breasts and in the inguinal groin folds are damp with some diffuse erythema and occasional erythematous papules. No significant skin breakdown or ulceration. The bandage in the right groin from the surgical incision enters into this right skin fold as well. Const: Vital Signs, click to edit/add: Vital Signs - 24 hr 03/12/24 08:17 03/12/24 08:30 03/12/24 12:10 Temperature 97.4 F L Pulse Rate 60 61 62 Pulse Rate [Pulse Oximeter] Respiratory Rate 16 16 15 Blood Pressure 130/70 123/66 137/85 Blood Pressure [Le ft Arm] Pulse Oximetry 98 98 94 Oxygen Delivery Me thod Nasal Cannula Nasal Cannula Room Air Oxygen Flow Rate 3 3 03/12/24 12:15 03/12/24 12:20 03/12/24 12:25 Temperature Pulse Rate 60 60 60 Pulse Rate [Pulse Oximeter] Respiratory Rate 15 15 14 Blood Pressure 148/88 H 160/92 H 178/99 H Blood Pressure [Le ft Arm] Pulse Oximetry 97 95 96 Oxygen Delivery Me thod Room Air Room Air Room Air Oxygen Flow Rate 03/12/24 12:30 03/12/24 12:35 03/12/24 12:40 Temperature 97.1 F L Pulse Rate 60 60 58 L Pulse Rate [Pulse Oximeter] Respiratory Rate 14 14 14 Blood Pressure 157/106 H 159/94 H 179/98 H Blood Pressure [Le ft Arm] Pulse Oximetry 94 97 96 Oxygen Delivery Me thod Room Air Room Air Room Air Oxygen Flow Rate 03/12/24 12:45 03/12/24 13:00 03/12/24 13:00 Temperature 97.4 F L 97.4 F L 97.4 F L Pulse Rate 60 Pulse Rate [Pulse Oximeter] 61 61 Respiratory Rate 14 16 16 Blood Pressure 152/89 H Blood Pressure [Le ft Arm] 157/96 H 157/96 H Pulse Oximetry 97 95 95 Oxygen Delivery Me thod Room Air Room Air Room Air Oxygen Flow Rate 3 03/12/24 13:15 03/12/24 13:30 03/12/24 13:30 Temperature 97.2 F L 97.3 F L 97.3 F L Pulse Rate 60 Pulse Rate [Pulse Oximeter] 60 60 Respiratory Rate 18 18 18 Blood Pressure 164/88 H Blood Pressure [Le ft Arm] 159/93 H 164/88 H Pulse Oximetry 94 96 96 Oxygen Delivery Me thod Room Air Room Air Room Air Oxygen Flow Rate 03/12/24 13:35 03/12/24 13:45 03/12/24 14:00 Temperature 97.3 F L 97.3 F L 97.3 F L Pulse Rate 60 60 60 Pulse Rate [Pulse Oximeter] Respiratory Rate 18 18 18 Blood Pressure 152/89 H 156/89 H 162/85 H Blood Pressure [Le ft Arm] Pulse Oximetry 96 96 94 Oxygen Delivery Me thod Room Air Room Air Room Air Oxygen Flow Rate 3 0 03/12/24 14:00 03/12/24 15:00 03/12/24 15:00 Temperature 97.3 F L 97.3 F L Pulse Rate 60 60 Pulse Rate [Pulse Oximeter] Respiratory Rate 18 18 Blood Pressure 168/90 H 154/89 H Blood Pressure [Le ft Arm] Pulse Oximetry 97 97 Oxygen Delivery Me thod Room Air Room Air Room Air Oxygen Flow Rate 0 0 03/12/24 16:29 03/12/24 16:30 03/12/24 17:29 Temperature 97.6 F 97.6 F 97.6 F Pulse Rate 60 69 Pulse Rate [Pulse Oximeter] 84 Respiratory Rate 18 18 20 Blood Pressure 154/89 H 155/63 H Blood Pressure [Le ft Arm] 106/63 Pulse Oximetry 95 95 93 Oxygen Delivery Me thod Room Air Room Air Room Air Oxygen Flow Rate 0 03/12/24 18:30 03/12/24 19:30 03/12/24 19:30 Temperature 97.4 F L 97.6 F 97.6 F Pulse Rate 68 65 Pulse Rate [Pulse Oximeter] Respiratory Rate 20 18 18 Blood Pressure 151/81 H 168/85 H Blood Pressure [Le ft Arm] Pulse Oximetry 94 93 93 Oxygen Delivery Me thod Room Air Room Air Room Air Oxygen Flow Rate 0 0 0 03/12/24 23:32 03/13/24 00:50 03/13/24 02:44 Temperature 97.3 F L 98.0 F Pulse Rate Pulse Rate [Pulse Oximeter] 63 65 Respiratory Rate 16 16 18 Blood Pressure Blood Pressure [Le ft Arm] 169/84 H 135/61 Pulse Oximetry 93 94 Oxygen Delivery Me thod Room Air Room Air Oxygen Flow Rate 0 Documenting provider has reviewed patient's vital signs: yes DS: Data Data Completed and Pending Labs on day of discharge: Labs from last 24 hours 03/13/24 03/12/24 06:20 07:53 WBC 13.69 H RBC 3.92 L Hgb 11.3 L Hct 35.9 MCV 92 MCH 29 MCHC 32 RDW Coeff of Loretta 13.7 Plt Count 239 Neut % (Auto) 77.6 H Lymph % (Auto) 11.8 L [place] % (Auto) 10.3 Eos % (Auto) 0.0 Baso % (Auto) 0.1 Neut # (Auto) 10.60 H Lymph # (Auto) 1.60 [place] # (Auto) 1.40 H Eos # (Auto) 0.00 Baso # (Auto) 0.00 Abs Immat Gran (auto) 0.00 Imm/Tot Granulo (auto) 0.2 Sodium 135 Potassium 4.3 BUN 28 Creatinine 1.0 Estimated Creat Clear 44.10 Estimated GFR 58 Blood Type AB Positive Antibody Screen NEGATIVE Discharge Plan Discharge Disposition: Home w/ Parent or Adult Discharging Surgeon: Sarbjit Carmen Follow-Up Appointment: 03/18 with Sasha Jeter PA-C at 1330 in [place] Prescriptions: New sennosides [Senna Lax] 8.6 mg Tablet 17.2 mg PO BID PRN (Reason: constipation) Qty: 100 0RF oxycodone 5 mg Tablet 2.5 - 5 mg PO Q4-6H MDD 6 tabs per day PRN (Reason: Pain) Qty: 42 0RF Rx Instructions: Minimize. Discontinue as soon as possible carboxymethylcellulose sodium [Refresh Plus] 0.5 % Dropperette 1 drp ophthalmic (eye) Q4H PRN (Reason: Ocular lubricant) Qty: 10 0RF nystatin 100,000 unit/gram powder 1 applic topical TID Qty: 30 1RF Continued metoprolol succinate 100 mg tablet extended release 24 hr 100 mg PO DAILY Eliquis 5 mg tablet 5 mg PO BID spironolactone 50 mg tablet 50 mg PO DAILY lisinopril 40 mg tablet 40 mg PO DAILY montelukast 10 mg tablet 10 mg PO HS pantoprazole 40 mg tablet,delayed release (DR/EC) 40 mg PO DAILY tamsulosin 0.4 mg capsule 0.4 mg PO DAILY chlorthalidone 25 mg tablet 12.5 mg PO QAM venlafaxine 150 mg capsule,extended release 24hr 150 mg PO DAILY pravastatin 40 mg tablet 40 mg PO DAILY venlafaxine 37.5 mg capsule,extended release 24hr 37.5 mg PO DAILY epinephrine 0.3 mg/0.3 mL auto-injector 0.3 mg IM DAILY PRN albuterol sulfate 90 mcg/actuation HFA aerosol inhaler 2 puff inhalation Q4H PRN acetaminophen 500 mg capsule 1,000 mg PO Q6H PRN Mounjaro 2.5 mg/0.5 mL pen injector 2.5 mg subcut QWEEK Rx Instructions: for 4 weeks albuterol sulfate 2.5 mg/0.5 mL solution for nebulization 2.5 mg inhalation Q4H PRN ascorbic acid (vitamin C) 500 mg tablet 500 mg PO BID cholecalciferol (vitamin D3) 25 mcg (1,000 unit) capsule 25 mcg PO DAILY Trelegy Ellipta 200-62.5-25 mcg blister with device 1 inh inhalation DAILY magnesium 250 mg tablet 250 mg PO DAILY melatonin-pyridoxine HCl (B6) 1-10 mg tablet 1 tab PO HS Activity Level: Activity as Tolerated and No strenuous activity Activity Detail: Keep dressing on for 2 weeks. Dressing is waterproof. May shower. Surgical glue covers the wound. Attend outpatient physical therapy if scheduled. Ice and elevate operative extremity without restriction. Swelling and bruising will worsen within the first week. When swelling occurs, elevate the extremity above heart level several times a day and gently massage/pull soft tissue swelling toward hip. This allows gravity to assist in eliminating the swelling/edema. Ambulate every hour throughout the day. If you drive, Do not drive while taking narcotic pain medication. Do not drink alcohol while taking narcotic pain medication. May drive when safe to do so and have full function of the extremities, this may take 6 weeks or more. Notify Orthopedics with any questions or concerns. ([phone]) You have swelling in your right forearm. This is probably from infiltration of the IV that you had in that area. This should get better over the next several days. Applying a hot pack to this area may help it resolve faster. You have a yeast infection in your skin folds. The best way to manage this is to clean that area with soap and water and then carefully dry the skin. After the skin is dry apply nystatin powder to the skin fold. Initially this should be done 3 times a day. When the redness is gone you no longer need the nystatin powder but you should still clean and dry the skin at least once a day. You or your partner should monitor the right groin area where your skin incision from surgery is located. Monitor for infection in the skin incision. If you see increasing redness or drainage from the incision see your orthopedic doctor. Discharge Diet: Heart Healthy (2 gm sodium, low fat) Diet Detail: Therapeutic carbohydrate restriction Patient Instructions: Anterior Hip Replacement (DC) Follow-up: Kiarra Espinosa CNP [Primary Care Provider] - Discharge Orders: Discharge Order (Routine); Ordered 03/13/24 Ordered By: Sasha Jeter Consulting provider completed their portion of the discharge: Yes
[2024-03-13 07:54] VITALS: BP 139/100; PULSE 77; RESP 18; TEMP 36.7; O2SAT 94
[2024-03-13] MEDS: VENLAFAXINE HCL ER 37.5 MG CAPSULE PO (08:23)
[2024-03-13] MEDS: VENLAFAXINE ER 75 MG CAPSULE 150 MG PO (08:23)
[2024-03-13] MEDS: SENNOSIDES 1 TAB TABLET 2 TAB PO (08:23)
[2024-03-13] MEDS: TAMSULOSIN HCL 0.4 MG CAPSULE PO (08:24)
[2024-03-13] MEDS: MAGNESIUM OXIDE 400 MG TABLET PO (08:24)
[2024-03-13] MEDS: APIXABAN 5 MG TABLET PO (08:24)
[2024-03-13] MEDS: CHLORTHALIDONE 25 MG TABLET 12.5 MG PO (08:24)
[2024-03-13] MEDS: METOPROLOL SUCCINATE (XL) 100 MG TAB PO (08:25)
[2024-03-13] MEDS: lisinopriL 20 MG TABLET 40 MG PO (08:25)
[2024-03-13] MEDS: NYSTATIN POWDER 1 APPLIC TOPICAL (08:28)
[2024-03-13] MEDS: SPIRONOLACTONE 25 MG TABLET 50 MG PO (08:28)
[2024-03-13 10:53] VITALS: BP 108/51; PULSE 69; RESP 16; TEMP 36.6; O2SAT 93
--- NOTE | 2024-03-13 12:19 | PC.NURSE ---
Pt alert and oriented. Pt had complaints of pain ranging 3-6; see EMAR for intervention. Pt's dressing is dry and intact.Pt has bruising around dressing. Breast/Abdominal folds cleaned and nystatin applied. Pt is a SBA with walker and gait belt. Pt's IV removed; catheter intact. Pt's VS WNL. Discharge instructions gone over with Pt and daughter.
--- NOTE | 2024-03-13 12:38 | NUTR.NU ---
RDN with MD consult for low sodium diet. Patient discharged before RDN was able to visit with patient.
== END 2024-03-13 11:20 | disposition home or self-care (01) ==
LOC: OR 06:46 → MEDSURG 06:52
PROVIDERS: PCP Nurse Practitioner Family; Visit Provider Orthopaedic Surgery
PROC: (CPT 27130; principal; 2024-03-12 09:00)
DX: M16.11 Unilateral primary osteoarthritis, right hip (principal); G89.18 Other acute postprocedural pain; E66.01 Morbid (severe) obesity due to excess calories; Z68.42 Body mass index [BMI] 45.0-49.9, adult; B37.2 Candidiasis of skin and nail; G47.33 Obstructive sleep apnea (adult) (pediatric); I11.0 Hypertensive heart disease with heart failure; I50.9 Heart failure, unspecified; H04.122 Dry eye syndrome of left lacrimal gland; I48.91 Unspecified atrial fibrillation; Z79.01 Long term (current) use of anticoagulants
CPT/HCPCS: 27130; 01214; 36415; 64450; 73501; 76000; 76942; 82565; 84132; 84295; 84520; 85025; 86850; 86900; 86901; 97110; 97116; 97161; 97165; 97530; 97535; 99100; A9270; C1776; J0330; J0690; J1100; J2250; J2405; J2704; J2795; J3010; J7120